=== PATIENT | female | born 1945 | race Caucasian/White ===

== ENCOUNTER 2018-06-01 13:53 | Emergency (ER) | payer MEDICARE, OTHER ==
[~2018-06-01] VITALS: Ht 157.5 cm; Wt 61.2 kg
[~2018-06-01 13:53] MED LIST: ALPR1; AMIT10; AMPDEX10; BUPR150ER PO; CARI350; CHLO10; FURO80; FURO80 PO; Ferus150 MG; GABA100 PO; INSR10I; METF500; METH5 PO; NAPR220 PO; OMEP10ER; OMEP20ER PO; OXYACE5C; OXYACE5T PO; OXYB5 PO; POTCHL20ER PO; PROACE100; Stool Softener100 MG PO; TEMA7.5; TRAZ100 PO
[2018-06-01 14:45] LABS: BASOPHILS ABSOLUTE AUTO 0.02 K/mm3 (0.00-0.23); BASOPHILS PERCENT AUTO 0 % (0-2); EOSINOPHILS ABSOLUTE AUTO 0.26 K/mm3 (0.00-0.68); EOSINOPHILS PERCENT AUTO 4 % (0-6); Hematocrit 34.4 % (33.0-51.0); IMMATURE GRAN ABSOLUTE AUTO 0.01 K/mm3 (0.00-0.10); IMMATURE GRAN PERCENT AUTO 0 % (0-1); LYMPHOCYTES ABSOLUTE AUTO 2.26 K/mm3 (0.84-5.20); LYMPHOCYTES PERCENT AUTO 37 % (21-46); MONOCYTES PERCENT AUTO 7 % (4-13); Mean Corpuscular HGB 29.7 pg (26.0-34.0); Mean Corpuscular Volume 93 fL (80-100); Mean Platelet Volume 9.6 fL (9.1-12.4); NEUTROPHILS ABSOLUTE AUTO 3.22 K/mm3 (1.96-9.15); NEUTROPHILS PERCENT AUTO 52 % (41-73); Platelet Count 187 K/mm3 (150-400); RDW Coefficient Variation 13.3 % (11.7-14.2); White Blood Cell Count 6.17 K/mm3 (4.00-11.30)
[2018-06-01 15:07] LABS: Alanine Aminotransfer (ALT/SGP 27 U/L (12-78); Albumin, Blood 3.6 g/dL (3.4-5.0); Albumin/Globulin Ratio 1.2 (0.8-1.8); Alk Phos 24 U/L (50-136); Anion Gap 6 mmol/L (6-16); Aspartate Aminotrans (AST/SGOT 28 U/L (12-37); Bilirubin, Total 0.5 mg/dL (0.1-1.0); Blood Urea Nitrogen 18 mg/dL (8-24); Bun/Creatinine Ratio 16.2 (12.0-20.0); CO2, Blood 31 mmol/L (21-32); Calcium, Blood 8.7 mg/dL (8.5-10.1); Chloride, Blood 101 mmol/L (98-108); Creatinine, Blood 1.11 mg/dL (0.40-1.00); Globulin, Blood 3.1 g/dL (2.2-4.0); Glomerular Filtration Rate 51 (60-); Glucose, Blood 102 mg/dL (70-99); Potassium, Blood 4.4 mmol/L (3.5-5.5); Sodium, Blood 138 mmol/L (136-145); Total Protein, Blood 6.7 g/dL (6.4-8.2); Troponin I <0.015 ng/mL (0.000-0.040)
[2018-06-01] MEDS ORDERED: MELO7.5 PO (15:45)
[2018-06-01 17:20] LABS: Source, Urine Clean Catch
[2018-06-01 17:28] LABS: Bilirubin, Urine Neg (Neg); Blood, Urine Neg (Neg); Glucose Qualitative, Urine Neg (Neg); Ketones, Urine Neg (Neg); Leukocyte Esterase, Urine Neg (Neg); Nitrite, Urine Pos (Neg); Protein, Urine Neg (Neg); Specific Gravity, Urine 1.015 (1.003-1.022); Urobilinogen, Urine NORM (Normal)
[2018-06-01 17:51] LABS: Influenza A Negative (NEGATIVE); Influenza B Negative (NEGATIVE)
[2018-06-01 17:54] LABS: Appearance, Urine Clear (Clear); Color, Urine Yellow (P-Yellow)
[2018-06-01 17:57] LABS: Bacteria Rare /hpf; Red Blood Cells, Urine Not Seen /hpf (0-2); Squamous Epithelial Cells Rare /hpf (Few); White Blood Cells, Urine Not Seen /hpf (0-5)
== END 2018-06-01 18:50 | disposition home or self-care (01) ==
LOC: ER 13:53
PROVIDERS: Emergency Medicine; Physician Assistant
DX: R07.89 Other chest pain (principal); Z88.8 Allergy status to other drugs, medicaments and biological substances; Z79.899 Other long term (current) drug therapy
CPT/HCPCS: 36415; 71046; 80053; 81001; 84484; 85025; 87804; 93005; 93010; 99284-25

== ENCOUNTER → 2018-06-20 | Outpatient (CLI) | payer MEDICARE, OTHER ==
[~2018-06-20] MED LIST changes: +MELO7.5 PO
[2018-06-20 13:06] LABS: Source, Urine Clean Catch
[2018-06-20 16:31] LABS: Appearance, Urine Clear (Clear); Bilirubin, Urine Neg (Neg); Blood, Urine Neg (Neg); Color, Urine Yellow (P-Yellow); Glucose Qualitative, Urine Neg (Neg); Ketones, Urine Neg (Neg); Leukocyte Esterase, Urine Neg (Neg); Nitrite, Urine Neg (Neg); Protein, Urine Neg (Neg); Urobilinogen, Urine NORM (Normal)
== END | disposition home or self-care (01) ==
LOC: LAB SHORT 11:08 → LAB 11:08
PROVIDERS: Family Medicine
DX: N39.9 Disorder of urinary system, unspecified (principal)
CPT/HCPCS: 81003

== ENCOUNTER 2019-05-24 19:27 | Emergency (ER) | payer OTHER, MEDICARE ==
[~2019-05-24] VITALS: Ht 157.5 cm; Wt 54.4 kg
[2019-05-24] MEDS ORDERED: ACETAMINOPHEN500 MG PO (20:52)
== END 2019-05-24 21:52 | disposition home or self-care (01) ==
LOC: ER 19:27
DX: M54.2 Cervicalgia (principal); G89.29 Other chronic pain; Z88.8 Allergy status to other drugs, medicaments and biological substances; Z79.899 Other long term (current) drug therapy; V89.2XXA Person injured in unspecified motor-vehicle accident, traffic, initial encounter
CPT/HCPCS: 70450; 72125; 99284-25; L0160

== ENCOUNTER → 2021-01-10 | Outpatient (CLI) | payer MEDICARE, OTHER ==
[~2021-01-10] MED LIST changes: +ACETAMINOPHEN500 MG PO; +CEPH500 PO; +FLUC150A PO
[2021-01-10 20:15] LABS: Albumin/Globulin Ratio 1.3 (0.8-1.8); Bilirubin, Total 0.3 mg/dL (0.1-1.0); Bun/Creatinine Ratio 35.4 (12.0-20.0); Calcium, Blood 9.3 mg/dL (8.5-10.1); Creatinine, Blood 1.3 mg/dL (0.40-1.00); Globulin, Blood 3.1 g/dL (2.2-4.0); Phosphorus, Blood 4.8 mg/dL (2.5-4.9); Total Protein, Blood 7.1 g/dL (6.4-8.2)
== END | disposition home or self-care (01) ==
LOC: LAB SHORT 17:51 → LAB 17:51
PROVIDERS: Internal Medicine Hematology & Oncology
DX: K62.5 Hemorrhage of anus and rectum (principal); R63.4 Abnormal weight loss
CPT/HCPCS: 80053; 84100

== ENCOUNTER → 2021-01-25 | Outpatient (CLI) | payer MEDICARE, OTHER ==
[2021-01-25 19:07] LABS: Alanine Aminotransfer (ALT/SGP 29 U/L (12-78); Albumin/Globulin Ratio 1.2 (0.8-1.8); Alk Phos 33 U/L (50-136); Anion Gap 5 mmol/L (6-16); Aspartate Aminotrans (AST/SGOT 18 U/L (12-37); Bilirubin, Total 0.3 mg/dL (0.1-1.0); Blood Urea Nitrogen 40 mg/dL (8-24); Bun/Creatinine Ratio 30.8 (12.0-20.0); CO2, Blood 35 mmol/L (21-32); Calcium, Blood 9.4 mg/dL (8.5-10.1); Chloride, Blood 101 mmol/L (98-108); Globulin, Blood 3.2 g/dL (2.2-4.0); Glomerular Filtration Rate 40 (60-); Glucose, Blood 66 mg/dL (70-99); Phosphorus, Blood 4.2 mg/dL (2.5-4.9); Potassium, Blood 3.7 mmol/L (3.5-5.5); Sodium, Blood 141 mmol/L (136-145); Total Protein, Blood 7.2 g/dL (6.4-8.2)
[2021-01-27 11:25] LABS: Bilirubin, Direct <0.1 mg/dL (0.0-0.3)
== END | disposition home or self-care (01) ==
LOC: LAB 14:30 → LAB SHORT 14:30
PROVIDERS: Internal Medicine Hematology & Oncology
DX: K62.5 Hemorrhage of anus and rectum (principal); R63.4 Abnormal weight loss; R93.5 Abnormal findings on diagnostic imaging of other abdominal regions, including retroperitoneum
CPT/HCPCS: 80053; 82248; 84100

== ENCOUNTER → 2021-05-10 | Outpatient (CLI) | payer MEDICARE, OTHER | END | disposition home or self-care (01) | LOC: LAB 13:32 → LAB SHORT 13:32 | DX: R30.0 Dysuria (principal) | CPT/HCPCS: 87077; 87086; 87186 ==

== ENCOUNTER 2021-07-22 17:40 | Emergency (ER) | payer MEDICARE, OTHER ==
[~2021-07-22] VITALS: Ht 157.5 cm; Wt 50.4 kg
[2021-07-22 18:09] LABS: BASOPHILS ABSOLUTE AUTO 0.05 K/mm3 (0.00-0.23); BASOPHILS PERCENT AUTO 1 % (0-2); EOSINOPHILS ABSOLUTE AUTO 0.44 K/mm3 (0.00-0.68); EOSINOPHILS PERCENT AUTO 6 % (0-6); Hematocrit 38.2 % (33.0-51.0); Hemoglobin 12.2 g/dL (11.5-16.0); IMMATURE GRAN ABSOLUTE AUTO 0.01 K/mm3 (0.00-0.10); IMMATURE GRAN PERCENT AUTO 0 % (0-1); LYMPHOCYTES ABSOLUTE AUTO 3.13 K/mm3 (0.84-5.20); LYMPHOCYTES PERCENT AUTO 43 % (21-46); MONOCYTES ABSOLUTE AUTO 0.43 K/mm3 (0.16-1.47); MONOCYTES PERCENT AUTO 6 % (4-13); Mean Corpuscular HGB 28.9 pg (26.0-34.0); Mean Corpuscular HGB Conc 31.9 g/dL (31.5-36.5); Mean Corpuscular Volume 91 fL (80-100); NEUTROPHILS ABSOLUTE AUTO 3.22 K/mm3 (1.96-9.15); NEUTROPHILS PERCENT AUTO 44 % (41-73); Platelet Count 217 K/mm3 (150-400); RDW Coefficient Variation 13.1 % (11.7-14.2); RDW Standard Deviation 43.1 fL (35.1-46.3); Red Blood Cell Count 4.22 M/mm3 (3.80-5.20); White Blood Cell Count 7.28 K/mm3 (4.00-11.30)
[2021-07-22 18:39] LABS: Albumin/Globulin Ratio 1.2 (0.8-1.8); Bilirubin, Total 0.3 mg/dL (0.1-1.0); Calcium, Blood 9.8 mg/dL (8.5-10.1); Creatinine, Blood 1.22 mg/dL (0.40-1.00); Globulin, Blood 3.4 g/dL (2.2-4.0); Potassium, Blood 4.5 mmol/L (3.5-5.5); Total Protein, Blood 7.4 g/dL (6.4-8.2)
[2021-07-22 19:10] LABS: Influenza A, PCR NEGATIVE (NEGATIVE); Influenza B, PCR NEGATIVE (NEGATIVE); Resp Syncytial Virus, PCR NEGATIVE (NEGATIVE); SARS-Cov-2 (COVID-19) PCR, MMC NEGATIVE (NEGATIVE)
== END 2021-07-22 20:05 | disposition home or self-care (01) ==
LOC: ER 17:40
PROVIDERS: Physician Assistant
DX: R07.89 Other chest pain (principal); M25.50 Pain in unspecified joint; E11.9 Type 2 diabetes mellitus without complications; M19.90 Unspecified osteoarthritis, unspecified site; Z88.8 Allergy status to other drugs, medicaments and biological substances; Z79.899 Other long term (current) drug therapy
CPT/HCPCS: 0241U; 36415; 71045; 80053; 84484; 85025; 93005; 93010; 99284-25

== ENCOUNTER → 2023-06-08 | Outpatient (CLI) | payer OTHER | LOC: LAB 17:03 → LAB SHORT 17:03 | DX: R30.0 Dysuria (principal) | CPT/HCPCS: 87086 ==

== ENCOUNTER 2025-02-05 16:33 | Inpatient (IN) | payer OTHER ==
[~2025-02-05] VITALS: Ht 167.6 cm; Wt 54.4 kg
[~2025-02-05 16:33] MED LIST changes: -BUPR150ER PO; +BUPROPION XL PO
[2025-02-05] MEDS ORDERED: FLU VACC TS2025-26(6MOS UP)/PF 45 MCG/0.5 ML SYRINGE IM ONE (17:45)
[2025-02-05] MEDS ORDERED: FentaNYL Citrate 50 MCG/ML 2 ML Injection IV PRN (17:45)
[2025-02-05] MEDS ORDERED: Ondansetron HCl 2 MG / ML 2ML Vial IV PRN (17:45)
[2025-02-05] MEDS ORDERED: NS 1,000 ML IV SCH (18:00)
[2025-02-05 18:22] LABS: BASOPHILS ABSOLUTE AUTO 0.03 K/mm3 (0.00-0.23); BASOPHILS PERCENT AUTO 1 % (0-2); EOSINOPHILS ABSOLUTE AUTO 0.37 K/mm3 (0.00-0.68); EOSINOPHILS PERCENT AUTO 6 % (0-6); Hematocrit 34.8 % (33.0-51.0); Hemoglobin 11.3 g/dL (11.5-16.0); IMMATURE GRAN ABSOLUTE AUTO 0.02 K/mm3 (0.00-0.10); IMMATURE GRAN PERCENT AUTO 0 % (0-1); LYMPHOCYTES ABSOLUTE AUTO 1.86 K/mm3 (0.84-5.20); LYMPHOCYTES PERCENT AUTO 28 % (21-46); MONOCYTES ABSOLUTE AUTO 0.41 K/mm3 (0.16-1.47); MONOCYTES PERCENT AUTO 6 % (4-13); Mean Corpuscular HGB Conc 32.5 g/dL (31.5-36.5); Mean Corpuscular Volume 85 fL (80-100); NEUTROPHILS ABSOLUTE AUTO 3.96 K/mm3 (1.96-9.15); NEUTROPHILS PERCENT AUTO 59 % (41-73); NRBC ABSOLUTE 0.00 K/mm3 (0.00-0.02); NRBC Auto 0.0 /100 WBC (0.0-0.2); Platelet Count 208 K/mm3 (150-400); RDW Coefficient Variation 14.6 % (11.7-14.2); RDW Standard Deviation 45.3 fL (35.1-46.3)
[2025-02-05 18:41] LABS: Prothrombin Time Results 12.2 Sec (9.7-11.5)
[2025-02-05 19:04] LABS: Alanine Aminotransfer (ALT/SGP 24.0 U/L (12-78); Albumin, Blood 4.0 g/dL (3.4-5.0); Albumin/Globulin Ratio 1.2 (0.8-1.8); Anion Gap 7.0 mmol/L (3-11); Aspartate Aminotrans (AST/SGOT 26.0 U/L (12-37); Bilirubin, Total 0.5 mg/dL (0.1-1.0); Blood Urea Nitrogen 35.0 mg/dL (8-24); CO2, Blood 33.0 mmol/L (21-32); Calcium, Blood 9.1 mg/dL (8.5-10.1); Chloride, Blood 101.0 mmol/L (98-108); Creatinine, Blood 1.25 mg/dL (0.40-1.00); Globulin, Blood 3.2 g/dL (2.2-4.0); Glucose, Blood 116.0 mg/dL (70-99); Potassium, Blood 3.7 mmol/L (3.5-5.5); Sodium, Blood 137.0 mmol/L (136-145); Total Protein, Blood 7.2 g/dL (6.4-8.2)
[2025-02-05 20:22] VITALS: BP 146/89
[2025-02-06] VITALS (15 sets, daily range): BP systolic 110–155; BP diastolic 42–107
[2025-02-06 05:33] LABS: BASOPHILS ABSOLUTE AUTO 0.04 K/mm3 (0.00-0.23); BASOPHILS PERCENT AUTO 1 % (0-2); EOSINOPHILS ABSOLUTE AUTO 0.40 K/mm3 (0.00-0.68); EOSINOPHILS PERCENT AUTO 6 % (0-6); Hematocrit 31.7 % (33.0-51.0); Hemoglobin 10.2 g/dL (11.5-16.0); IMMATURE GRAN ABSOLUTE AUTO 0.01 K/mm3 (0.00-0.10); IMMATURE GRAN PERCENT AUTO 0 % (0-1); LYMPHOCYTES ABSOLUTE AUTO 2.65 K/mm3 (0.84-5.20); LYMPHOCYTES PERCENT AUTO 37 % (21-46); MONOCYTES ABSOLUTE AUTO 0.64 K/mm3 (0.16-1.47); MONOCYTES PERCENT AUTO 9 % (4-13); Mean Corpuscular HGB Conc 32.2 g/dL (31.5-36.5); Mean Corpuscular Volume 85 fL (80-100); NEUTROPHILS ABSOLUTE AUTO 3.53 K/mm3 (1.96-9.15); NEUTROPHILS PERCENT AUTO 49 % (41-73); NRBC ABSOLUTE 0.00 K/mm3 (0.00-0.02); NRBC Auto 0.0 /100 WBC (0.0-0.2); Platelet Count 181 K/mm3 (150-400); RDW Coefficient Variation 14.6 % (11.7-14.2); RDW Standard Deviation 45.6 fL (35.1-46.3)
--- NOTE | 2025-02-06 05:33 | NUR ---
SHIFT SUMMARY DAVE WAS ALERT AND FULLY ORIENTED ON ADMIT. ADMISSION COMPLETE. SLING TO L ARM. SENSATION AND CIRCULATION INTACT TO BILAT HANDS. PAIN WELL MANAGED. PT IS A JEHOVAS WITNESS, SO DOES NOT WISH TO HAVE BLOOD TRANSFUSION FOR ANY REASON. PT ABLE TO AMBULATE WELL, TOLERATING MOVEMENT RESTRICTIONS. VSS. DENIES CHEST PAIN, SOB, OR NAUSEA. NO ACUTE EVENTS TONIGHT.
[2025-02-06 05:54] LABS: Alanine Aminotransfer (ALT/SGP 22.0 U/L (12-78); Albumin, Blood 3.4 g/dL (3.4-5.0); Albumin/Globulin Ratio 1.3 (0.8-1.8); Anion Gap 5.0 mmol/L (3-11); Aspartate Aminotrans (AST/SGOT 23.0 U/L (12-37); Bilirubin, Total 0.5 mg/dL (0.1-1.0); Blood Urea Nitrogen 28.0 mg/dL (8-24); CO2, Blood 33.0 mmol/L (21-32); Calcium, Blood 8.4 mg/dL (8.5-10.1); Chloride, Blood 105.0 mmol/L (98-108); Creatinine, Blood 1.06 mg/dL (0.40-1.00); Globulin, Blood 2.7 g/dL (2.2-4.0); Glucose, Blood 83.0 mg/dL (70-99); Potassium, Blood 3.4 mmol/L (3.5-5.5); Sodium, Blood 140.0 mmol/L (136-145); Total Protein, Blood 6.1 g/dL (6.4-8.2)
[2025-02-06] MEDS ORDERED: Tranexamic Acid 100 ML IV SCH (07:10)
[2025-02-06] MEDS ORDERED: CeFAZolin Sodium 2,000 MG in NS 100 ML IV SCH ×2 (07:10→19:00)
[2025-02-06] MEDS ORDERED: Dexmedetomidine HCL 200 MCG / 2 ML ONE (08:46)
--- NOTE | 2025-02-06 09:01 | NUR ---
PT TO PROCEDURE AT THIS TIME.
--- NOTE | 2025-02-06 09:53 | NUR ---
W/C INTO SDS. PT HERE FOR LEFT ELBOW ORIF. PT IS E-DENTURELESS. C/O BEING COLD. INTIALLY MAURA HUGGER ON BUT TEMP IS ELEVATED. PT'S GLASSES PUT IN PACU Patient confirms NPO status and agrees with scheduled surgery. Pre-Op teaching done. Pt verbalizes understanding. History, Chart, Medications and Allergies reviewed before start of procedure.
[2025-02-06] MEDS ORDERED: Ondansetron HCl 2 MG / ML 2ML Vial ONE ×2 (10:09→12:25)
[2025-02-06] MEDS ORDERED: Dexamethasone Sod Phos 10 MG/ML 1ML VIAL ONE (10:09)
[2025-02-06] MEDS ORDERED: Rocuronium Bromide 10 MG/ML 5ML Injection IV ONE (10:09)
[2025-02-06] MEDS ORDERED: FentaNYL Citrate 50 MCG/ML 2 ML Injection ONE (10:09)
[2025-02-06] MEDS ORDERED: Bupivacaine HCl 0.25% 30 ML Injection ONE (10:09)
[2025-02-06] MEDS ORDERED: ePHEDrine Sulfate 50 MG/ML 1ML Injection ONE (11:31)
[2025-02-06] MEDS ORDERED: HYDROmorphone HCl/Pf 1MG SYR IV PRN ×3 (11:35→12:30)
[2025-02-06] MEDS ORDERED: FLU VACC TS2025(65UP)/MF59C/PF 45 MCG/0.5 ML SYRINGE IM SCH (11:40)
[2025-02-06] MEDS ORDERED: Naloxone HCl 0.4MG / ML 1ML Vial IV PRN (11:40)
[2025-02-06] MEDS ORDERED: Ondansetron HCl 2 MG / ML 2ML Vial IV PRN ×2 (11:40→12:30)
[2025-02-06] MEDS ORDERED: Magnesium Hydroxide Conc 10 ML UDC PO PRN (11:45)
[2025-02-06] MEDS ORDERED: Ketorolac Tromethamine 15mg Vial IV PRN (11:50)
[2025-02-06] MEDS ORDERED: Sugammadex Sodium 200 MG/2ML SDV (100 MG/ML) ONE (12:25)
[2025-02-06] MEDS ORDERED: FentaNYL Citrate 50 MCG/ML 2 ML Injection IV PRN ×2 (12:30)
--- NOTE | 2025-02-06 13:41 | NUR ---
ARRIVAL TO UNIT PT ARRIVED TO UNIT FROM PACU S/P ORIF OF L ELBOW. PT DENIES PAIN IN ARM, UNABLE TO WIGGLE FINGERS BUT CAP REFILL <3, WARM TO TOUCH. PPX4. FAMILY AT BEDSIDE ON ARRIVAL. ON 2L NASAL CANULA. WILL TITRATE OFF ONCE MORE AWAKE, CURRENTLY EATING SOME SNACKS. NO NAUSEA. RANDY WRAP PRESENT TO L ELBOW AND ARM IN SLING. CALL LIGHT PROVIDED.
[2025-02-06 14:17] LABS: Source, Urine Clean Catch
[2025-02-06 14:23] LABS: Bilirubin, Urine Neg (Neg); Color, Urine Yellow (P-Yellow); Glucose Qualitative, Urine Neg (Neg); Ketones, Urine Neg (Neg); Leukocyte Esterase, Urine 3+ (Neg); Protein, Urine 1+ (Neg); Specific Gravity, Urine 1.010 (1.003-1.022); Urobilinogen, Urine NORM (Normal)
[2025-02-06 14:36] LABS: Red Blood Cells, Urine 0-2 /hpf (0-2)
--- NOTE | 2025-02-06 17:31 | NUR ---
SHIFT SUMMARY POD 0 ORIF L ELBOW PT IS A/OX4. SBA IN ROOM. FOLLOWING WEIGHT BEARING PRECAUTIONS ON L ARM. PT IS TOLERATING INTAKE, AND VOIDING WELL. PT WORKED WITH BOTH PHYSICAL AND OCCUPATIONAL THERAPY TODAY. IMPAIRED SENSATION DUE TO NERVE BLOCK. VSS. CALL LIGHT IN REACH, ABLE TO MAKE NEEDS KNOWN. BED IN LOWEST POSITION.
[2025-02-06] MEDS ORDERED: CefTRIAXone Sodium 1,000 MG in NS 100 ML IV SCH (18:00)
[2025-02-07] VITALS (7 sets, daily range): BP systolic 114–147; BP diastolic 52–114
--- NOTE | 2025-02-07 04:50 | NUR ---
SHIFT SUMMARY DAVE WAS ALERT AND FULLY ORIENTED ON ASSESSMENT. PT DENIES PAIN TO L ELBOW. CIRCULATION INTACT TO L HAND, SENSATION SLOW TO RETURN. PT AMBULATING AND VOIDING APPROPRIATELY. PT DENIES SOB, NAUSEA, OR CHEST PRESSURE, NO ACUTE EVENTS OR NOTED CHANGES TO CONDITION.
[2025-02-07 04:57] LABS: BASOPHILS ABSOLUTE AUTO 0.02 K/mm3 (0.00-0.23); BASOPHILS PERCENT AUTO 0 % (0-2); EOSINOPHILS ABSOLUTE AUTO 0.01 K/mm3 (0.00-0.68); EOSINOPHILS PERCENT AUTO 0 % (0-6); Hematocrit 29.5 % (33.0-51.0); Hemoglobin 9.6 g/dL (11.5-16.0); IMMATURE GRAN ABSOLUTE AUTO 0.01 K/mm3 (0.00-0.10); IMMATURE GRAN PERCENT AUTO 0 % (0-1); LYMPHOCYTES ABSOLUTE AUTO 2.11 K/mm3 (0.84-5.20); LYMPHOCYTES PERCENT AUTO 29 % (21-46); MONOCYTES ABSOLUTE AUTO 0.63 K/mm3 (0.16-1.47); MONOCYTES PERCENT AUTO 9 % (4-13); Mean Corpuscular HGB Conc 32.5 g/dL (31.5-36.5); Mean Corpuscular Volume 87 fL (80-100); NEUTROPHILS ABSOLUTE AUTO 4.55 K/mm3 (1.96-9.15); NEUTROPHILS PERCENT AUTO 62 % (41-73); NRBC ABSOLUTE 0.00 K/mm3 (0.00-0.02); NRBC Auto 0.0 /100 WBC (0.0-0.2); Platelet Count 174 K/mm3 (150-400); RDW Coefficient Variation 14.9 % (11.7-14.2); RDW Standard Deviation 47.8 fL (35.1-46.3)
[2025-02-07 05:41] LABS: Anion Gap 6.0 mmol/L (3-11); Blood Urea Nitrogen 27.0 mg/dL (8-24); CO2, Blood 32.0 mmol/L (21-32); Calcium, Blood 8.3 mg/dL (8.5-10.1); Chloride, Blood 104.0 mmol/L (98-108); Creatinine, Blood 1.12 mg/dL (0.40-1.00); Glucose, Blood 165.0 mg/dL (70-99); Potassium, Blood 4.2 mmol/L (3.5-5.5); Sodium, Blood 138.0 mmol/L (136-145)
[2025-02-07] MEDS ORDERED: Polyethylene Glycol 3350 17 gm PO SCH (09:00)
[2025-02-07] MEDS ORDERED: Magnesium Hydroxide Conc 10 ML UDC PO PRN (15:10)
[2025-02-07] MEDS ORDERED: Enoxaparin 40 MG/0.4 ML SYR SC SCH (16:00)
[2025-02-07] MEDS ORDERED: NS 250 ML IV PRN (17:10)
[2025-02-08 00:16] VITALS: BP 106/49
[2025-02-08 04:37] VITALS: BP 151/69
[2025-02-08 05:49] LABS: BASOPHILS ABSOLUTE AUTO 0.04 K/mm3 (0.00-0.23); BASOPHILS PERCENT AUTO 1 % (0-2); EOSINOPHILS ABSOLUTE AUTO 0.22 K/mm3 (0.00-0.68); EOSINOPHILS PERCENT AUTO 3 % (0-6); Hematocrit 29.2 % (33.0-51.0); Hemoglobin 9.2 g/dL (11.5-16.0); IMMATURE GRAN ABSOLUTE AUTO 0.01 K/mm3 (0.00-0.10); IMMATURE GRAN PERCENT AUTO 0 % (0-1); LYMPHOCYTES ABSOLUTE AUTO 2.96 K/mm3 (0.84-5.20); LYMPHOCYTES PERCENT AUTO 41 % (21-46); MONOCYTES ABSOLUTE AUTO 0.65 K/mm3 (0.16-1.47); MONOCYTES PERCENT AUTO 9 % (4-13); Mean Corpuscular HGB Conc 31.5 g/dL (31.5-36.5); Mean Corpuscular Volume 88 fL (80-100); NEUTROPHILS ABSOLUTE AUTO 3.35 K/mm3 (1.96-9.15); NEUTROPHILS PERCENT AUTO 46 % (41-73); NRBC ABSOLUTE 0.00 K/mm3 (0.00-0.02); NRBC Auto 0.0 /100 WBC (0.0-0.2); Platelet Count 162 K/mm3 (150-400); RDW Coefficient Variation 14.8 % (11.7-14.2); RDW Standard Deviation 48.1 fL (35.1-46.3)
[2025-02-08 06:09] LABS: Anion Gap 4.0 mmol/L (3-11); Blood Urea Nitrogen 19.0 mg/dL (8-24); CO2, Blood 32.0 mmol/L (21-32); Calcium, Blood 8.1 mg/dL (8.5-10.1); Chloride, Blood 105.0 mmol/L (98-108); Creatinine, Blood 1.11 mg/dL (0.40-1.00); Glucose, Blood 90.0 mg/dL (70-99); Potassium, Blood 4.1 mmol/L (3.5-5.5); Sodium, Blood 137.0 mmol/L (136-145)
[2025-02-08 06:56] VITALS: BP 140/54
--- NOTE | 2025-02-08 07:35 | NUR ---
SHIFT SUMMARY NOC. PT POD 2 FOR ORIF OF LEFT OLECRANON. DRESSING C/D/I WITH SLING IN PLACE. PT VOIDING URINE AND TOLERATING PO. PT MEDICATED FOR PAIN PER EMAR. PT AMBULATES WITH SBA TO BATHROOM. PT MAKES NEEDS KNOWN AND USES CALL LIGHT.
[2025-02-08 11:25] VITALS: BP 131/51
[2025-02-08 15:49] VITALS: BP 143/51
--- NOTE | 2025-02-08 17:55 | NUR ---
PATIENT IS ALERT AND ORIENTED AND COOPRATIVE WITH CARE. POD 2. SBA TO THE BATHROOM. VOIDING WELL. NO BM TODAY. CALLS APPROPRIATLY. PAIN MANAGED PER EMAR. DRESSING HAS NOT BEEN CHANGED YET TODAY, WILL ATTEMPT TO DO SO FOLLOWING DINNER. WILL CONTINUE TO MONITOR
[2025-02-08 19:51] VITALS: BP 133/58
[2025-02-09 04:08] VITALS: BP 114/48
--- NOTE | 2025-02-09 04:48 | NUR ---
SHIFT SUMMARY NOC. PT POD 3 FOR ORIF OF LEFT OLECRANON. DRESSING C/D/I AND CHANGED PER ORDERS AT START OF SHIFT. SLING IN PLACE TO LUE. PT VOIDING URINE AND TOLERATING PO INTAKE. PT REQUESTED PRN MILK OF MAG FOR BOWEL CARE. PT MEDICATED FOR PAIN PER EMAR, PT AMBULATES VIA SBA TO BATHROOM. PT MAKES NEEDS KNOWN AND CALL LIGHT IN REACH.
[2025-02-09 05:22] LABS: BASOPHILS ABSOLUTE AUTO 0.03 K/mm3 (0.00-0.23); BASOPHILS PERCENT AUTO 1 % (0-2); EOSINOPHILS ABSOLUTE AUTO 0.28 K/mm3 (0.00-0.68); EOSINOPHILS PERCENT AUTO 4 % (0-6); Hematocrit 28.7 % (33.0-51.0); Hemoglobin 9.2 g/dL (11.5-16.0); IMMATURE GRAN ABSOLUTE AUTO 0.01 K/mm3 (0.00-0.10); IMMATURE GRAN PERCENT AUTO 0 % (0-1); LYMPHOCYTES ABSOLUTE AUTO 2.48 K/mm3 (0.84-5.20); LYMPHOCYTES PERCENT AUTO 38 % (21-46); MONOCYTES ABSOLUTE AUTO 0.59 K/mm3 (0.16-1.47); MONOCYTES PERCENT AUTO 9 % (4-13); Mean Corpuscular HGB Conc 32.1 g/dL (31.5-36.5); Mean Corpuscular Volume 88 fL (80-100); NEUTROPHILS ABSOLUTE AUTO 3.14 K/mm3 (1.96-9.15); NEUTROPHILS PERCENT AUTO 48 % (41-73); NRBC ABSOLUTE 0.00 K/mm3 (0.00-0.02); NRBC Auto 0.0 /100 WBC (0.0-0.2); Platelet Count 171 K/mm3 (150-400); RDW Coefficient Variation 14.5 % (11.7-14.2); RDW Standard Deviation 46.9 fL (35.1-46.3)
[2025-02-09 05:43] LABS: Anion Gap 4.0 mmol/L (3-11); Blood Urea Nitrogen 14.0 mg/dL (8-24); CO2, Blood 34.0 mmol/L (21-32); Calcium, Blood 8.5 mg/dL (8.5-10.1); Chloride, Blood 103.0 mmol/L (98-108); Creatinine, Blood 1.09 mg/dL (0.40-1.00); Glucose, Blood 93.0 mg/dL (70-99); Potassium, Blood 3.9 mmol/L (3.5-5.5); Sodium, Blood 137.0 mmol/L (136-145)
[2025-02-09 07:00] VITALS: BP 136/65
[2025-02-09] MEDS ORDERED: FURO80 PO (11:02)
[2025-02-09] MEDS ORDERED: POTA10T PO (11:03)
--- NOTE | 2025-02-09 12:51 | NUR ---
dc'd @1251 PT AXO4. VSS. L ARM IN SLING - DRESSING CHANGED PER GEOVANNI ORDERS, CLEANSED WITH HYDROGEN PEROXIDE, REDRESSED WITH ABD PAD AND RANDY WRAP. ENCOURAGING NWB STATUS. PT EXPRESSED CONCERNS REGARDING LACK OF BM'S THIS ADMISISON - BOWEL CARE MEDS ADMINISTERED, PT HAD SMALL FIRM BROWN BM LATER IN SHIFT. SURGICAL SITE PRESENTS NONINFLAMED. VOIDING WELL. TOLERATING PO INTAKE WELL. PT DEEMED OK TO DC BY GEOVANNI AND CHARLES. ORDERS RECEIVED. DC INSTRUCTIONS PROVIDED TO PT AND SON IN ROOM. PT WITH BELONGINGS. DC'D @1250 VIA WHEELCHAIR TO CAR.
== END 2025-02-09 12:50 | disposition home health service (06) | DRG 511 ==
LOC: ER 16:33 → SURS 16:34 → ERHOLD 16:34 → SURS 20:10
PROVIDERS: Emergency Medicine; Family Medicine; Orthopaedic Surgery; ADMIT Internal Medicine
PROC: 0PSL06Z Reposition Left Ulna with Intramedullary Internal Fixation Device, Open Approach (ICD-10-PCS; principal; 2025-02-06 10:00)
DX: S52.022A Displaced fracture of olecranon process without intraarticular extension of left ulna, initial encounter for closed fracture (principal); N39.0 Urinary tract infection, site not specified; M19.90 Unspecified osteoarthritis, unspecified site; E11.42 Type 2 diabetes mellitus with diabetic polyneuropathy; E11.22 Type 2 diabetes mellitus with diabetic chronic kidney disease; N18.32 Chronic kidney disease, stage 3b; Z90.89 Acquired absence of other organs; Z90.49 Acquired absence of other specified parts of digestive tract; Z96.651 Presence of right artificial knee joint; Z98.890 Other specified postprocedural states; Z79.899 Other long term (current) drug therapy; Z88.8 Allergy status to other drugs, medicaments and biological substances; W18.30XA Fall on same level, unspecified, initial encounter
CPT/HCPCS: 36415; 73200; 76377; 80048; 80053; 81001; 82947; 83880; 85025; 85610; 87086; 93005; 93010; 94762; 97110; 97116; 97162; 97165; 97535; 99285-25; A9270; G0378; J0690; J0696; J1100; J1650; J2405; J2704; J3010; J3480; J7030; J7050; J7120